=== PATIENT | male | born 1970 | race Caucasian/White ===

== ENCOUNTER → 2018-03-08 | Outpatient (CLI) | payer OTHER ==
[~2018-03-08] MED LIST: BUSPAR10 MG PO; CLONAZEPAM2 MG PO; DIVALPROEX SOD500 MG PO; EPIPEN; FENOFIBRATE; HYDROCODON-ACE1 EACH; LAMICTAL25 MG PO; LISINOPRIL20 MG; MIRTAZAPINE45 MG PO; SEROQUEL XR300 MG PO; TRICOR145 MG PO; [UNRECOGNIZED DRUG - OTHER]
== END | disposition home or self-care (01) ==
LOC: AMB 11:56
DX: Z45.2 Encounter for adjustment and management of vascular access device (principal); I87.8 Other specified disorders of veins; Z92.21 Personal history of antineoplastic chemotherapy

== ENCOUNTER 2018-04-29 11:27 | Emergency (ER) | payer OTHER ==
[~2018-04-29] VITALS: Ht 175.3 cm; Wt 80.1 kg
[2018-04-29 14:28] VITALS: BP 124/74
== END 2018-04-29 14:31 | disposition home or self-care (01) ==
LOC: EME 11:27
DX: G40.909 Epilepsy, unspecified, not intractable, without status epilepticus (principal); I10 Essential (primary) hypertension; E78.5 Hyperlipidemia, unspecified; F32.9 Major depressive disorder, single episode, unspecified; F31.9 Bipolar disorder, unspecified; F42.8 Other obsessive-compulsive disorder; F41.9 Anxiety disorder, unspecified; Z86.69 Personal history of other diseases of the nervous system and sense organs; Z92.21 Personal history of antineoplastic chemotherapy; Z85.72 Personal history of non-Hodgkin lymphomas; Z98.52 Vasectomy status
CPT/HCPCS: 99281; 99283